=== PATIENT | female | born 1940 | race Two or more races ===

== ENCOUNTER 2020-05-28 07:25 | Outpatient (CLI) | payer OTHER | END 2020-05-28 07:30 | disposition home or self-care (01) | LOC: LAB 07:25 → EDBD 07:25 → LAB 07:30 | PROVIDERS: ATTEND Orthopaedic Surgery | DX: M85.88 Other specified disorders of bone density and structure, other site (principal); E55.9 Vitamin D deficiency, unspecified; E21.2 Other hyperparathyroidism; E88.89 Other specified metabolic disorders; M81.8 Other osteoporosis without current pathological fracture; E56.1 Deficiency of vitamin K ==

== ENCOUNTER 2020-10-25 09:24 | Outpatient (CLI) | payer OTHER ==
[2020-11-04] MEDS ORDERED: LOSART PO (08:39)
[2020-11-04] MEDS ORDERED: ISORBIDE PO (08:40)
[2020-11-04] MEDS ORDERED: ATENOL PO ×2 (08:40→08:42)
[2020-11-04] MEDS ORDERED: [UNRECOGNIZED DRUG - OTHER] PO (08:42)
[2020-11-04] MEDS ORDERED: NASAL MIST126 ML (08:43)
[2020-11-04] MEDS ORDERED: HYDRA PO (08:43)
== END 2020-10-25 09:32 | disposition home or self-care (01) ==
LOC: TOM 09:24
PROVIDERS: ATTEND Specialist
DX: K57.90 Diverticulosis of intestine, part unspecified, without perforation or abscess without bleeding (principal); R10.84 Generalized abdominal pain; K40.90 Unilateral inguinal hernia, without obstruction or gangrene, not specified as recurrent; I70.0 Atherosclerosis of aorta

== ENCOUNTER 2020-11-11 05:00 | Day surgery (SDC) | payer OTHER ==
[~2020-11-11 05:00] MED LIST: ATENOL PO; HYDRA PO; ISORBIDE PO; LOSART PO; NASAL MIST126 ML; [UNRECOGNIZED DRUG - OTHER] PO
== END 2020-11-11 15:55 | disposition home or self-care (01) ==
LOC: CIR.AMB 05:00
PROVIDERS: ATTEND Specialist
DX: K40.90 Unilateral inguinal hernia, without obstruction or gangrene, not specified as recurrent (principal); Z20.822 Contact with and (suspected) exposure to COVID-19

== ENCOUNTER 2021-11-21 20:11 | Emergency (ER) | payer OTHER ==
[~2021-11-21] VITALS: Ht 167.6 cm; Wt 61.2 kg
== END 2021-11-22 10:45 | disposition home or self-care (01) ==
LOC: ER 20:11
DX: K56.609 Unspecified intestinal obstruction, unspecified as to partial versus complete obstruction (principal); K59.00 Constipation, unspecified; I10 Essential (primary) hypertension; Z88.6 Allergy status to analgesic agent; Z91.09 Other allergy status, other than to drugs and biological substances

== ENCOUNTER 2022-11-03 12:49 | Emergency (ER) | payer OTHER ==
[~2022-11-03] VITALS: Ht 165.1 cm; Wt 59.0 kg
== END 2022-11-03 16:00 | disposition home or self-care (01) ==
LOC: ER 12:49
DX: I10 Essential (primary) hypertension (principal); Z88.6 Allergy status to analgesic agent